=== PATIENT | male | born 1955 | race Caucasian/White ===

== ENCOUNTER → 2017-01-27 | Day surgery (SDC) | payer OTHER | LOC: MSO 07:52 | DX: Z12.11 Encounter for screening for malignant neoplasm of colon (principal); D12.2 Benign neoplasm of ascending colon; D12.3 Benign neoplasm of transverse colon; I10 Essential (primary) hypertension; G47.33 Obstructive sleep apnea (adult) (pediatric); K21.9 Gastro-esophageal reflux disease without esophagitis; E11.9 Type 2 diabetes mellitus without complications; K64.4 Residual hemorrhoidal skin tags | CPT/HCPCS: 00810; J7030 ==

== ENCOUNTER → 2022-01-14 | Outpatient (CLI) | payer OTHER, MEDICARE | LOC: AMSURD 14:09 | DX: Z01.810 Encounter for preprocedural cardiovascular examination (principal) ==